=== PATIENT | female | born 1985 | race Caucasian/White ===

== ENCOUNTER 2021-01-06 22:15 | Emergency (ER) | payer SELFPAY ==
[2021-01-06 22:28] VITALS: BMI 30.9
[2021-01-06] MEDS ORDERED: ACETAMINOPHEN 1000 MG/100 ML VIAL (NON FORMULARY) IVPB ONE (23:59)
[2021-01-06] MEDS ORDERED: ONDANSETRON 4 MG TABLET PO ONE (23:59)
[2021-01-07] MEDS ORDERED: ONDANSETRON 4 MG/2 ML VIAL ONE (00:17)
[2021-01-07] MEDS ORDERED: ACETAMINOPHEN INJECTION 100 ML IVPB ONE (00:17)
[2021-01-07 00:33] LABS: BASO % 0.5 % (0-2.0); EOS % 3.1 % (0-4.5); HEMATOCRIT 36.9 % (32.4-45.2); HEMOGLOBIN 11.9 GM/dL (10.7-15.3); LYMPH % 32.6 % (8-40); MCH 24.2 pg (25.7-33.7); MCHC 32.4 g/dl (32.0-36.0); MEAN CELL VOLUME 74.8 fl (80-96); MEAN PLT VOLUME 9.1 fl (7.5-11.1); MONO % 5.8 % (3.8-10.2); PLATELET COUNT 245 10^3/uL (134-434); RBC 4.93 M/mm3 (3.60-5.2); RDW 17.6 % (11.6-15.6); WHITE BLOOD COUNT 10.1 K/mm3 (4.0-10.0)
[2021-01-07 00:55] LABS: BLOOD UREA NITROGEN 10.4 mg/dL (7-18)
[2021-01-07 00:58] LABS: CREATININE 0.6 mg/dL (0.55-1.3)
[2021-01-07 00:59] LABS: BILIRUBIN,TOTAL 0.3 mg/dL (0.2-1); TOT PROT 7.8 g/dl (6.4-8.2)
[2021-01-07] MEDS ORDERED: LACTATED RINGERS SOLUTION 1000 ML INFUS.BAG IV ONE (01:00)
[2021-01-07 01:01] LABS: INR 0.97 (0.83-1.09); PROTHROMBIN TIME (PATIENT) 11.9 SEC (9.7-13.0)
[2021-01-07 01:04] LABS: ACTIVATED PTT 33.4 SECONDS (25.2-36.5)
[2021-01-07 01:26] VITALS: BP 134/85; PULSE 68; TEMP 98.2
[2021-01-07 03:18] LABS: URINE APPEARANCE CLEAR; URINE COLOR YELLOW
[2021-01-07 03:19] LABS: PH,URINE 6.5 (5.0-8.0); URINE BILIRUBIN NEGATIVE (NEGATIVE); URINE GLUCOSE (UA) NEGATIVE (NEGATIVE); URINE KETONE 15 mg/dl (NEGATIVE); URINE PROTEIN NEGATIVE (NEGATIVE)
[2021-01-07 03:20] LABS: URINE BACTERIA PRESENT /uL (0-1359); URINE LEUK ESTERASE TRACE (NEGATIVE); URINE NITRITE NEGATIVE (NEGATIVE)
== END 2021-01-07 04:00 | disposition home or self-care (01) ==
LOC: JER 22:15
PROC: 3E0333Z Introduction of Anti-inflammatory into Peripheral Vein, Percutaneous Approach (ICD-10-PCS; principal; 2021-01-06)
DX: N83.8 Other noninflammatory disorders of ovary, fallopian tube and broad ligament (principal)
CPT/HCPCS: 36415; 74177-TC; 80053; 81003; 83690; 84703; 85025; 85610; 85730; 87086; 99285-25; J0131

== ENCOUNTER 2023-11-05 18:09 | Emergency (ER) | payer SELFPAY ==
[2023-11-05 18:52] VITALS: RESP 18; TEMP 98; BMI 28.5
[2023-11-05 20:07] LABS: BASO % 0.4 % (0-2.0); EOS % 1.5 % (0-4.5); HEMATOCRIT 33.3 % (32.4-45.2); HEMOGLOBIN 10.5 GM/dL (10.7-15.3); LYMPH % 30.4 % (8-40); MCH 22.7 pg (25.7-33.7); MCHC 31.4 g/dl (32.0-36.0); MEAN CELL VOLUME 72.2 fl (80-96); MEAN PLT VOLUME 9.6 fl (7.5-11.1); MONO % 8.4 % (3.8-10.2); NEUT % 59.3 % (42.8-82.8); PLATELET COUNT 279 10^3/uL (134-434); RBC 4.61 M/mm3 (3.60-5.2); RDW 18.1 % (11.6-15.6); WHITE BLOOD COUNT 10.6 K/mm3 (4.0-10.0)
[2023-11-05 20:08] LABS: HCG,QUALITATIVE URINE Positive
[2023-11-05 20:18] LABS: EPI CELLS >36 /uL (0-25.1); HYALINE CASTS 0 /uL (0-3.1); URINE APPEARANCE CLOUDY; URINE BACTERIA 633 /uL (0-1359); URINE BILIRUBIN NEGATIVE (NEGATIVE); URINE COLOR ORANGE; URINE GLUCOSE (UA) NEGATIVE (NEGATIVE); URINE KETONE TRACE (NEGATIVE); URINE LEUK ESTERASE 2+ (NEGATIVE); URINE NITRITE NEGATIVE (NEGATIVE); URINE PROTEIN 2+ (NEGATIVE); URINE RBC 1060 /uL (0-23.9); URINE WBC 235 /uL (0-25.8)
[2023-11-05 20:24] LABS: POTASSIUM 3.5 mmol/L (3.5-5.1)
[2023-11-05 20:27] LABS: ALBUMIN 3.8 g/dl (3.4-5.0); BLOOD UREA NITROGEN 9.5 mg/dL (7-18)
[2023-11-05 20:30] LABS: CREATININE 0.7 mg/dL (0.55-1.3)
[2023-11-05 20:31] LABS: TOT PROT 7.6 g/dl (6.4-8.2)
[2023-11-05 20:32] LABS: BILIRUBIN,TOTAL 0.2 mg/dL (0.2-1)
[2023-11-05 22:41] VITALS: BP 134/72; PULSE 82
== END 2023-11-05 22:41 | disposition home or self-care (01) ==
LOC: EDBD 18:09 → JER 18:09
DX: O20.9 Hemorrhage in early pregnancy, unspecified (principal); Z3A.00 Weeks of gestation of pregnancy not specified
CPT/HCPCS: 36415; 76817-TC; 80053; 81003; 84702; 84703; 85025; 86850; 86900; 86901; 87086; 99284-25